=== PATIENT | female | born 1950 | race Caucasian/White ===

== ENCOUNTER 2016-09-23 22:23 | Emergency (ER) | payer MEDICARE ==
--- NOTE | 2016-09-23 22:36 | EDPRACDOC ---
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 Mode Of Arrival: Ambulance Home Medications: Home Medications Budesonide/Formoterol [Symbicort 160/4.5] 2 inh INH BID 11/20/14 Nitroglycerin [Nitrostat] 0.4 mg SL .[id number] PRN 01/30/15 Omeprazole 40 mg PO DAILY 01/30/15 Sennosides [Senna] 8.6 mg PO DAILY 01/30/15 Citalopram (anti-depressant) [Celexa] 40 mg PO DAILY 03/12/16 Folic Acid/Mv,Fe,Other Min [One Daily For Women Tablet] 1 tab PO DAILY 03/12/16 Oxycodone HCl/Acetaminophen [Percocet 5-325 mg Tablet] 1 tab PO Q6H PRN Cephalexin Monohydrate [Keflex] 500 mg PO Q6H #40 cap 09/23/16 Clopidogrel Bisulfate [Plavix] 75 mg PO DAILY 09/23/16 Diazepam [Valium] 5 mg PO BID PRN 09/23/16 Allergies/Adverse Reactions: Allergies Allergy/AdvReac Type Severity Reaction Status Date / Time nitrofurantoin Allergy Severe Hives* Verified 09/23/16 22:50 macrocrystalline [From Macrodantin] levofloxacin [From Levaquin] Allergy Intermediate Rash-Genera Verified 09/23/16 22:50 lized Sulfa (Sulfonamide Allergy Intermediate Rash-Genera Verified 09/23/16 22:50 Antibiotics) lized LATEX Allergy Intermediate Rash-Locali Uncoded 09/23/16 22:50 zed RX EYE DROP UNKNOWN Allergy Intermediate See Uncoded 09/23/16 22:50 Comments - History of Present Illness HPI: WEAKNESS, DIZZY, CONFUSION FOR 1 WEEK. PT ESRD, DIALYSIS, , , SAT. LAST DIALYSIS FRIDAY. REPORTED FOUL SMELLING URINE. + SOB. Symptoms Started: Reports: Gradually ED Past Medical History - History Reviewed Yes Nurses notes reviewed and agree except as marked - Patient Medical History Cardiac History: Reports: Coronary Artery Disease, Hypertension, Congestive Heart Failure, Heart Attack (CABG), Cardiac Catheterization, CABG, Hypercholesterolemia, Cardiomyopathy Respiratory History: Reports: Asthma, COPD, Bronchitis, Emphysema GI/ History: Reports: Renal Disease, Gastroesophageal Reflux Musculoskeletal History: Reports: Osteoarthritis Psychological History: Reports: Depression, Anxiety Systemic History: Reports: Anemia (iron infusions q week), Diabetes. Denies: Cancer Surgical History: Reports: CABG, Angioplasty, Cardiac Catheterization - Family Medical History Reports: Hypertension (MOM), Diabetes (MOM), Cardiac Disorders (MOM). Denies: Cancer, Stroke - Social Medical History Smoking Status: Former smoker EDM Review of Systems - Review of Systems ROS Negative Except as Marked: Yes All systems reviewed and were negative except as marked - Physical Exam Constitutional: No apparent distress, Alert (Awake), Other (CHRONICALLY ILL APPEARING.) Oriented to: Time, Person, Place Last recorded Vital Signs: Oxygen Pulse Oxygen Saturation O2 Device Oxygen Flow Rate Fraction of Inspired Oxygen ( FIO2) - HEENT Head: Normal ( normocephalic) Eye Exam: Normal (PERRL, EOMI, Sclera white) Oropharynx: Normal (Pharynx:Moist without exudate,Gums-no swelling) Nose: No Symptoms Reported (septum midline) Neck: Normal (FROM, trachea at midline) - Respiratory/Cardiovascular Respiratory: Rales (RIGHT) Cardiovascular: Normal (RRR without murmur, gallop or rub) - GI Auscultation: Normal (NABS) Palpation: Normal (Soft,No rebound or guarding, non distended) Tenderness: Non tender Pandey's Sign: Negative - Musculoskeletal Back: Normal (Non-Tender) Extremities: Normal (Normal tone, Pulses 2+ No cyanosis or edema, FROM) - Integumentary Skin: Normal, Warm, Dry, Other (DIFFUSE ANASARCA) Lymphatics: Normal (no adenopathy) - Neurologic Memory Impaired: Normal Motor Function: Normal (Normal tone, Pulses 2+ No cyanosis or edema, FROM) Cranial Nerve: Normal (CN II-X11 intact sensation, strength 5/5) Cerebellar: Normal Mood Description: Normal Perception: Normal - Results 09/23/16 22:50 09/23/16 22:50 - EKG EKG #1 EKG Time: 22:49 -: Yes EKG interpreted by me Rate: bpm: 75 [place]: RAD Rhythm: NSR Hypertrophy: None (ATRIAL ENLARGEMENT) ST: Lat, Ischemia Comments: ABNORMAL EKG - Departure Yes I personally saw and evaluated the patient. Disposition: Home Condition: Stable Final Diagnosis: Weakness UTI (urinary tract infection) Qualifiers: Urinary tract infection type: acute cystitis Hematuria presence: with hematuria Qualified Code(s): N30.01 - Acute cystitis with hematuria Instructions: Urinary Tract Infection in Women (ED) Education/Counseling Given To: Patient Education/Counseling Given Regarding: Diagnosis Referrals: None,No Provider [NonStaff] - One Week Prescriptions: Cephalexin Monohydrate [Keflex] 500 mg PO Q6H #40 cap Additional Instructions: DISCUSS YOUR UTI TREATMENT WITH YOUR SUSTAINABLE DEVELOPMENT POLICY ANALYST TOMORROW AT DIALYSIS.
[2016-09-23 22:47] LABS: ABG Draw Site Right Radial; ALLEN'S TEST PASS; BEb -1.4 (+/- 2); TCO2 23.9 MMOL/L (23-27)
[2016-09-23 22:50] VITALS: BMI 28.0
[2016-09-23 23:07] LABS: LEUKOCYTES/URINE 3+ (NEGATIVE); NITRITE/URINE NEG (NEGATIVE); URINE OCCULT BLOOD 3+ (NEG/TRACE)
--- NOTE | 2016-09-23 23:10 | DIRPT ---
CLINICAL DATA: 66-year-old female with weakness, dizziness and confusion for 1 week. EXAM: PORTABLE CHEST 1 VIEW COMPARISON: Chest x-ray 05/25/2016. FINDINGS: There is cephalization of the pulmonary vasculature and slight indistinctness of the interstitial markings suggestive of mild pulmonary edema. No pleural effusions. Mild cardiomegaly. The patient is rotated to the left on today's exam, resulting in distortion of the mediastinal contours and reduced diagnostic sensitivity and specificity for mediastinal pathology. Atherosclerosis in the thoracic aorta. Status post median sternotomy for CABG. IMPRESSION: 1. The appearance the chest suggests mild congestive heart failure, as above. 2. Atherosclerosis. Electronically Signed By: Sid Martinez M.D. On: 09/23/2016 23:08
[2016-09-23 23:11] LABS: BLOOD UREA NITROGEN 35 MG/DL (7-17); CALC CORRECTED 9.6 MG/DL (8.4-10.2); CALCIUM 9.2 MG/DL (8.4-10.2); CALCULATED OSMOLALITY 261 MOs/Kg (270-290); GLUCOSE 132 MG/DL (70-99); SODIUM LEVEL 130 mEq/L (137-146); TOTAL PROTEIN 7.3 G/DL (6.3-8.2)
[2016-09-23 23:12] LABS: CHLORIDE 93 mEq/L (98-107)
[2016-09-23 23:13] LABS: AUTOMATED EOSINOPHIL 0.6 % (0-5); AUTOMATED MONOCYTE 12.9 % (3-10); AUTOMATED NEUTROPHIL 73.5 % (45-76); MPV 9.5 fL (7.4-10.4)
[2016-09-23 23:15] LABS: RBC/URINE TNTC (0-5); WBC/URINE TNTC (0-5)
[2016-09-23 23:20] LABS: PARTIAL THROMB. TIME 27.6 SEC (22-35); PT-INR 1.5
[2016-09-23] MEDS ORDERED: CEFTRIAXONE 1 GM in D5W 100 ML IV ONE (23:26)
[2016-09-24 00:56] VITALS: BP 123/64; PULSE 70; TEMP 98.1
== END 2016-09-24 00:38 | disposition home or self-care (01) ==
LOC: ED 22:23
DX: N30.01 Acute cystitis with hematuria (principal); R53.1 Weakness
CPT/HCPCS: 36415; 36600; 71010; 80053; 81001; 82803; 83605; 85025; 85610; 85730; 87040; 87077; 87086; 87186; 93005; 96365; 99284; J0696; J7060